=== PATIENT | female | born 1945 | race Hispanic/Latino ===

== ENCOUNTER 2016-11-18 14:22 | Outpatient (CLI) | payer MEDICARE ==
--- NOTE | 2016-11-19 11:05 | Mammography Report ---
BONE DEXA:11/18/16 14:22:00 CLINICAL: Postmenopausal. COMPARISON: 08/17/14 TECHNIQUE: Two site bone DEXA performed on an Hologic scanner. FINDINGS: The average BMD of the lumbar spine L1-L4 is 1.129g/cm squared with a T-score of +0.7 and a Z-score of +3.1. This compares to 1.155g/cm squared on the last exam and represents a -2.3% change from the previous study and -3.5% change from baseline. The average BMD of the left hip is 0.901g/cm squared with a T-score of -0.3 and a Z-score of +1.4. This compares to 0.892g/cm squared on the last exam and represents a +1.0% change from the previous study and a +0.3% change from baseline. IMPRESSION: 1. WHO classification: Normal with average fracture risk based on spine measurements. A modest decline in spine BMD compared to previous exams. 2. WHO classification: Osteopenia with increased fracture risk based on left hip measurements. Slight improvement in left hip BMD compared to previous exams. RECOMMENDATION: Clinical correlation and routine screening. DEFINITIONS: BMD = Bone Mineral Density T-score = BMD related to mean peak bone mass of young adult (mean expressed in Standard Deviation) Z-score = Age matched BMD expressed in SD World Health Organization (WHO) Diagnostic Criteria Normal T-score > -1 SD Osteopenia T-score between -1 and -2.4 SD Osteoporosis T-score -2.5 SD or below NOTE: BMD is not the only risk factor for fracture; also consider factors such as the patient's age, risk of falling, previous osteoporotic fracture, family history of osteoporotic fractures, current smoker, and low body weight. Z-scores are not calculated if >80 years of age.
--- NOTE | 2016-11-19 13:28 | Mammography Report ---
BILATERAL DIGITAL SCREENING MAMMOGRAM with CAD : 11/18/16 14:22:00 CLINICAL: Routine screening. COMPARISON:08/17/14 FINDINGS: The breasts are heterogeneously dense, which may obscure small masses. No mass, architectural distortion or suspicious calcifications. IMPRESSION: No mammographic evidence of malignancy. BI-RADS CATEGORY: 2 -- Benign RECOMMENDATION: Routine mammographic screening in one year. COMMENT: Patient follow-up letters are generated by our [employer] application.
== END 2016-11-18 14:23 | disposition home or self-care (01) ==
LOC: SPVWC 14:22
PROVIDERS: ATTEND Family Medicine
DX: Z12.31 Encounter for screening mammogram for malignant neoplasm of breast (principal); Z78.0 Asymptomatic menopausal state
CPT/HCPCS: 77080; G0202; 77067

== ENCOUNTER 2019-09-27 17:59 | Emergency (ER) | payer MEDICARE ==
--- NOTE | 2019-09-27 18:14 | Event Note ---
ED Screening Note Date of service: 09/27/19 Time: 18:11 ED Screening Note: 74 y/o female comes for AGUILAR, weakness, heaviness in legs, dyspnea, some cognitive changes. Had a gas leak at home. This initial assessment/diagnostic orders/clinical plan/treatment(s) is/are subject to change based on patients health status, clinical progression and re- assessment by fellow clinical providers in the ED. Further treatment and workup at subsequent clinical providers discretion. Patient/guardian urged not to elope from the ED as their condition may be serious if not clinically assessed and managed. Initial orders include:
[2019-09-27 20:22] LABS: BUN/Creatinine Ratio 23; Blood Urea Nitrogen 21 mg/dL (7-17); Calcium 9.4 mg/dL (8.4-10.2); Hemolysis Index 7
[2019-09-27 20:39] LABS: Basophils % (Auto) 0.5 % (0.0-1.8); Eosinophils # (Auto) 0.2 K/mm3 (0.0-0.4); Hematocrit 42.7 % (30.3-42.9); Hemoglobin 14.1 gm/dl (10.1-14.3); Lymphocytes # (Auto) 1.4 K/mm3 (1.2-5.4); Lymphocytes % (Auto) 19.4 % (13.4-35.0); Mean Corpuscular HGB Conc 33 % (30-34); Mean Corpuscular Volume 96 fl (79-97); Monocytes # (Auto) 0.6 K/mm3 (0.0-0.8); Monocytes % (Auto) 8.2 % (0.0-7.3); Platelet Count 265 K/mm3 (140-440); Red Blood Count 4.43 M/mm3 (3.65-5.03); Red Cell Distribution Width 13.9 % (13.2-15.2)
--- NOTE | 2019-09-27 21:15 | Emergency Department Report ---
ED General Adult HPI - General Chief complaint: Headache Stated complaint: GAS LEAK IN HOME/HEMO TEST Time Seen by Provider: 09/27/19 18:10 Source: patient Mode of arrival: Ambulatory Limitations: No Limitations - History of Present Illness Initial comments: 74-year-old female presents to ED for evaluation after finding a gas leak in her home. Patient states 5 days ago she "felt something come over me." Patient denies feeling numbness and tingling. Has difficulty describing the episode, however, she reports that at baseline she has difficulty with her balance, and states her balance has been more abnormal than usual over the last 5 days. She also reports "feeling heavy" and slight headache. Patient was seen by her code enforcement officer today and advised to come to the ER to have a carboxyhemoglobin checked since a gas leak was found in her home last night. Patient spent the night at a family member's house last night. States she is feeling better than she has in the last few days. -: days(s) (5) Location: head Consistency: intermittent Improves with: none Worsens with: none Associated Symptoms: confusion, headaches. denies: chest pain, nausea/vomiting, shortness of breath - Related Data Home Medications Medication Instructions Recorded Confirmed Last Taken ALBUTEROL Inhaler (OR & NICU) 1 inhalation INHALATION PRN 01/27/14 01/27/14 01/13/14 [ProAir] Amlodipine Besylate 1 tab PO DAILY 01/27/14 01/27/14 01/27/14 Dexlansoprazole [Dexilant] 1 cap PO DAILY 01/27/14 01/27/14 01/27/14 Esomeprazole Magnesium [Nexium] 1 tab PO DAILY 01/27/14 01/27/14 01/27/14 Fluticasone Propionate [Flonase] 1 spray INNOSTRIL BID 01/27/14 01/27/14 Losartan Potassium 1 tab PO DAILY 01/27/14 01/27/14 01/27/14 Mometasone/Formoterol [Dulera 100 1 inhalation INHALATION BID 01/27/14 01/27/14 01/27/14 Mcg/5 Mcg Inhaler] Mv,Julio,Min/Iron/Folic Acid/Lut 1 tab PO DAILY 01/27/14 01/27/14 01/26/14 [Complete Multi Tablet] Sucralfate [Carafate] 10 ml PO BID 01/27/14 01/27/14 01/26/14 Allergies Allergy/AdvReac Type Severity Reaction Status Date / Time ciprofloxacin [From Cipro] Allergy Swelling Verified 09/27/19 18:05 ibuprofen [From Advil] Allergy Swelling Verified 09/27/19 18:05 ED Review of Systems ROS: Stated complaint: GAS LEAK IN HOME/HEMO TEST Other details as noted in HPI Comment: All other systems reviewed and negative Constitutional: denies: chills, fever Respiratory: denies: shortness of breath Cardiovascular: denies: chest pain Gastrointestinal: denies: nausea, vomiting Neurological: headache, abnormal gait. denies: weakness, numbness ED Past Medical Hx - Past Medical History Previous Medical History?: Yes Hx Hypertension: Yes (10YRS) Hx GERD: Yes Hx Renal Disease: Yes (Stage 3) Hx Asthma: Yes (3 MOS) - Surgical History Past Surgical History?: Yes Additional Surgical History: neck surgery 2011 - Social History Smoking Status: Never Smoker Substance Use Type: None - Medications Home Medications: Home Medications Medication Instructions Recorded Confirmed Last Taken Type ALBUTEROL Inhaler (OR & NICU) 1 inhalation INHALATION PRN 01/27/14 01/27/14 01/13/14 History [ProAir] Amlodipine Besylate 1 tab PO DAILY 01/27/14 01/27/14 01/27/14 History Dexlansoprazole [Dexilant] 1 cap PO DAILY 01/27/14 01/27/14 01/27/14 History Esomeprazole Magnesium [Nexium] 1 tab PO DAILY 01/27/14 01/27/14 01/27/14 History Fluticasone Propionate [Flonase] 1 spray INNOSTRIL BID 01/27/14 01/27/14 01/27/14 History Losartan Potassium 1 tab PO DAILY 01/27/14 01/27/14 01/27/14 History Mometasone/Formoterol [Dulera 100 1 inhalation INHALATION BID 01/27/14 01/27/14 01/27/14 History Mcg/5 Mcg Inhaler] Mv,Julio,Min/Iron/Folic Acid/Lut 1 tab PO DAILY 01/27/14 01/27/14 01/26/14 History [Complete Multi Tablet] Sucralfate [Carafate] 10 ml PO BID 01/27/14 01/27/14 01/26/14 History ED Physical Exam - General Limitations: No Limitations General appearance: alert, in no apparent distress - Head Head exam: Present: atraumatic, normocephalic - Eye Eye exam: Present: normal appearance, PERRL, EOMI - ENT ENT exam: Present: mucous membranes moist - Neck Neck exam: Present: normal inspection - Respiratory Respiratory exam: Present: normal lung sounds bilaterally. Absent: respiratory distress - Cardiovascular Cardiovascular Exam: Present: regular rate, normal rhythm - GI/Abdominal GI/Abdominal exam: Present: soft. Absent: distended, tenderness - Extremities Exam Extremities exam: Present: normal inspection - Neurological Exam Neurological exam: Present: alert, oriented X3, CN II-XII intact. Absent: motor sensory deficit - Psychiatric Psychiatric exam: Present: normal affect, normal mood - Skin Skin exam: Present: warm, dry, intact, normal color ED Course Vital Signs 09/27/19 09/27/19 09/27/19 18:04 20:42 22:09 Temperature 98.2 F 98.2 F Pulse Rate 83 77 Respiratory 18 18 18 Rate Blood Pressure 143/53 Blood Pressure 131/59 [Left] O2 Sat by Pulse 96 98 Oximetry ED Medical Decision Making - Lab Data Result diagrams: 09/27/19 19:32 09/27/19 19:32 - Medical Decision Making 74-year-old female presents to ED at the request of her code enforcement officer to check carboxyhemoglobin level. Patient reports symptoms after learning that she had a gas leak in her home. Gas currently been turned off, patient reports she spent the night and really member last night. Carboxyhemoglobin level is within normal limits. Patient is alert and oriented 3, patient is in no acute distress at this time. Patient is feeling better than she has been over the last few days. She is advised to follow-up with her primary care physician and code enforcement officer. Critical care attestation.: If time is entered above; I have spent that time in minutes in the direct care of this critically ill patient, excluding procedure time. ED Disposition Clinical Impression: Carbon monoxide exposure Disposition: DC-01 TO HOME OR SELFCARE Is pt being admited?: No Condition: Stable Instructions: Carbon Monoxide Exposure (ED) Additional Instructions: Your carboxyhemoglobin level was 1.1 today. Referrals: PRIMARY CARE, [Primary Care Provider] - 3-5 Days Time of Disposition: 21:37
[2019-09-27 22:24] VITALS: BP 131/59
== END 2019-09-27 22:41 | disposition home or self-care (01) ==
LOC: ED 17:59
DX: T58.91XA Toxic effect of carbon monoxide from unspecified source, accidental (unintentional), initial encounter (principal); I10 Essential (primary) hypertension; K21.9 Gastro-esophageal reflux disease without esophagitis; J45.909 Unspecified asthma, uncomplicated; Z98.890 Other specified postprocedural states; Z79.899 Other long term (current) drug therapy; Z88.1 Allergy status to other antibiotic agents; Z88.6 Allergy status to analgesic agent; Y92.89 Other specified places as the place of occurrence of the external cause
CPT/HCPCS: 36415; 80048; 82375; 85025

== ENCOUNTER 2021-02-20 12:52 | Outpatient (CLI) | payer MEDICARE ==
--- NOTE | 2021-02-20 15:07 | Mammography Report ---
DEXA BONE DENSITY SCAN INDICATION / CLINICAL INFORMATION: POSTMENOPAUSAL Z78.0. 75 years Female COMPARISON: DEXA scan from 11/18/2016 LUMBAR SPINE, L12L4: - Bone mineral density (BMD) = 1.22 g/cm2. - T-score = 1.3 - Z-score = 3.9 Change (%) since most recent prior (if available): 4.9% increase LEFT HIP, : - Bone mineral density (BMD) = 0.764 g/cm2. - T-score = -0.8 - Z-score = 1.4 Change (%) since most recent prior (if available): 1.2% decrease IMPRESSION: 1. WHO Classification: Normal bone density. Fracture Risk: Not Increased. Note: 10-Year Fracture Risk (FRAX) not reported. This DEXA unit lacks FRAX functionality. BMD Reporting Guidelines (ISCD, 2015) BMD Reporting in Postmenopausal Women and in Men Age 50 and Older - T-scores are preferred. - The WHO densitometric classification is applicable. BMD Reporting in Females Prior to Menopause and in Males Younger Than Age 50 - Z-scores, not T-scores, are preferred. This is particularly important in children. - A Z-score of -2.0 or lower is defined as below the expected range for age, and a Z-score above -2.0 is within the expected range for age. - Osteoporosis cannot be diagnosed in men under age 50 on the basis of BMD alone. - The WHO diagnostic criteria may be applied to women in the menopausal transition. http://www.iscd.org/official-positions/5664-rpey-krbjrqys-positions-adult/ Signer Name: Gurdeep Bella MD Signed: 02/20/2021 2:55 PM Workstation Name: [id number]
--- NOTE | 2021-02-20 15:27 | Mammography Report ---
DIGITAL SCREENING MAMMOGRAM WITH CAD, 02/20/2021 CLINICAL INFORMATION / INDICATION: Routine screening mammography. TECHNIQUE: Digital bilateral 2D mammography was obtained in the craniocaudal and mediolateral obliqu e projections. This examination was interpreted with the benefit of Computer-Aided Detection analysis . COMPARISON: 11/18/2016, 08/17/2014 FINDINGS: Breast Density: There are scattered areas of fibroglandular density. No dominant mass, suspicious calcifications, or architectural distortion in either breast. Stable coarse calcifications are again noted in the left breast. IMPRESSION: No mammographic evidence of malignancy. Follow up recommendation: Routine yearly BI-RADS Category 2: Benign. A "normal" or negative report should not discourage follow up or biopsy of a clinically significant f inding. A written summary of these findings will be mailed to the patient. The patient will be entered into a mammography reporting system which will generate a reminder letter for the patient's next appointmen t at the appropriate interval. The [employer] recommends yearly mammograms starting at age 40 and continuing as l jan as a woman is in good health. Breast MRI is recommended for women with an approximate 20-25% or greater lifetime risk of breast cancer, including women with a strong family history of breast or ova marcia cancer or who have been treated for Hodgkin's disease. Signer Name: Ade Little MD Signed: 02/20/2021 3:04 PM Workstation Name: [email or web address]
== END 2021-02-20 12:53 | disposition home or self-care (01) ==
LOC: SPVWC 12:52
PROVIDERS: ATTEND Physician Assistant Medical
DX: Z12.31 Encounter for screening mammogram for malignant neoplasm of breast (principal); N64.89 Other specified disorders of breast; Z78.0 Asymptomatic menopausal state
CPT/HCPCS: 77067; 77080